=== PATIENT | male | born 1965 | race Caucasian/White ===

== ENCOUNTER → 2017-11-07 09:54 | Outpatient (CLI) | payer OTHER, SELFPAY ==
[2017-11-07 11:39] LABS: Add Manual Diff / Slide Review NO; Eosinophils Percent Auto 1.5 % (2-4); Hematocrit 41.6 % (41-53); Hemoglobin 14.3 g/dL (13.5-17.5); Lymphocytes Percent Auto 37.3 % (25-40); Mean Corpuscular HGB Conc 34.4 % (30-36); Mean Corpuscular Hemoglobin 30.9 PG (26-34); Mean Corpuscular Volume 89.8 fL (80-100); Monocytes Percent Auto 7.6 % (3-14); Neutrophils Absolute Auto 2700 /uL (3000-5900); Neutrophils Percent Auto 52.6 % (50-75); Platelet Count 361 X10^3/uL (150-400); Red Blood Cell Count 4.63 X10^6/uL (4.5-5.9); Red Cell Distribution Width 13.1 % (11.6-14.8); White Blood Cell Count 5.1 X10^3/uL (4.5-11.0)
[2017-11-07 11:50] LABS: TSH w/ Reflex to FT4 1.14 uIU/mL (0.47-4.68)
== END ==
PROVIDERS: PCP Family Medicine; Visit Provider Family Medicine
DX: R61 Generalized hyperhidrosis (principal)
CPT/HCPCS: 36415; 84153; 84443; 85025

== ENCOUNTER → 2018-05-28 11:14 | Outpatient (CLI) | payer OTHER, SELFPAY ==
[2018-05-28 13:08] LABS: Blood Urea Nitrogen 22 mg/dL (9-20); Calcium 9.7 mg/dL (8.4-10.2); Carbon Dioxide 28 mmol/L (22-32); Chloride 104 mmol/L (98-107); Estimated Glomerular Filt Rate > 60.0 mL/min (>60); Glucose 96 mg/dL (70-100); HEMOLYSIS < 15 (0-50); Potassium 4.9 mmol/L (3.4-5.1); Sodium 145 mmol/L (137-145)
== END ==
PROVIDERS: PCP Family Medicine; Visit Provider Family Medicine
DX: I10 Essential (primary) hypertension (principal)
CPT/HCPCS: 36415; 80048

== ENCOUNTER 2018-11-19 14:05 | Day surgery (SDC) | payer OTHER, SELFPAY ==
--- NOTE | 2018-11-19 | PATH_ITS ---
[facility] Accession Number: [id number] . 01 Material submitted: . ileo-cecal valve - ILEOCECAL VALVE MASS . 01 Clinical history: . MASS . 02 Diagnosis: Ileocecal Valve, Mass, Biopsy: Compact infiltrates of mast cells, greater than 15 per high-power field with co-expression of CD2 and CD25, consistent with systemic mastocytosis. Negative for epithelial dysplasia. Please see comment. V/11/29/2018 . 02 Comment: The combined morphologic and immunophenotypic results fulfill one major and one minor World Health Organization diagnostic criteria for systemic mastocytosis. Correlation with other signs, including dermatologic conditions is recommended. . Dr. Ndiaye called preliminary results to [facility] on 11/22/2018. As part of routine production quality analyst, Dr. Flores and Dr. Hay also reviewed this case and agree with the diagnosis. . Reference: Carlos Blanc SR. Systemic Mastocytosis Involving the Gastrointestinal Tract. Arch Pathol Lab Med. Feb 2013;137:9483-2093. . 02 Electronically signed: . Jessi Ndiaye MD, Pathologist NPI- [id number] . 01 Gross description: . ILEOCECAL VALVE MASS: Received in formalin are 3 fragment(s) of galeana, soft tissue measuring 0.4 x 0.4 x 0.2 cm to 0.4 x 0.2 x 0.2 cm submitted entirely in 1 cassette(s) /CKI /CKI . 02 Microscopic: . Immunohistochemical stains were performed to characterize the cells of interest. All control stains showed appropriate reactivity. . RESULTS: CD117: Positive in the cells of interest. Greater than 15 Cytokeratin NOÉ: Negative. S100: Negative. CD2: Positive in the cells of interest. CD25: Positive in the cells of interest. . INTERPRETATION: The deeper levels examined on the immunohistochemical stains only have a tiny amount of tissue; however, there is enough material to determine that the cells of interest are CD117 positive mast cells with an abnormal coexpression of CD2 and CD25, consistent with neoplastic mast cells. . * This test was developed and its performance characteristics determined by [facility]. It has not been cleared or approved by the U.S. Food and Drug Administration. The FDA has determined that such clearance or approval is not necessary. This test is used for clinical purposes. It should not be regarded as investigational or for research. . The technical component for the CD2 and CD25 stains was performed at [facility], [place], [place] (CLIA ID [id number]). . 02 Pathologist provided ICD-10: D47.02 . 02 CPT . 005012, G69196, Y70032, R59553 Performed at: [facility] [address] [facility], [place], [place] [id number] MD Jared Sands MD Phone: [phone] Performed at: 02 [facility] [address] [place], [place] [id number] MD Jessi Ndiaye MD Phone: [phone]
--- NOTE | 2018-11-19 14:12 | PM.HP.1 ---
History of Present Illness Date Patient Seen: 11/19/18 Time Patient Seen: 14:13 Chief complaint: [id number] Colonoscopy Narrative: 53yo M for first screening colonoscopy. No alarm symptoms, only has occasional small blood streaks when he has a hard stool. Working on losing weight. Grandfather has CRC at age 52. Patient History Medical History Anxiety (Chronic) Hay fever (Chronic ~1985) Foot pain (Chronic ~2016) GERD (gastroesophageal reflux disease) (Chronic) Surgical History Status post cholecystectomy (Resolved) Family History Father Heart disease Hypertension High cholesterol Stroke Mother Skin cancer Social History marital status: number of children: 1 household members: family lives independently: Yes occupational status: employed Smoking Status: Former smoker (off and on 10 year smoker 1 ppd) alcohol intake: current substance use type: does not use Family & Social History Family History Father Heart disease Hypertension High cholesterol Stroke Mother Skin cancer Social History: household members family lives independently Yes Tobacco & Substance use: Smoking Status Former smoker alcohol intake current Meds Home Medications Medication Instructions Recorded Confirmed Type ranitidine 150 mg tablet 150 mg PO DAILY 04/08/18 09/03/18 History losartan 50 mg tablet 50 mg PO DAILY #90 tab 09/03/18 09/03/18 Rx Allergies Allergy/AdvReac Type Severity Reaction Status Date / Time meperidine [From DEMEROL] Allergy Unknown Verified 09/03/18 09:06 Review of Systems Constitutional Constitutional: Reports as per HPI Exam Narrative Exam Narrative: AAO, NAD, obese male EOMI, MMM, no scleral icterus unlabored RA soft, nt/nd MAEW visible skin dry and intact Assessment & Plan (1) Encounter for screening colonoscopy: Current visit: Yes Status: Acute Assessment & Plan narrative: - plan for high risk screening colonoscopy --> all R/B/A discussed and pt wishes to proceed
[2018-11-19] MEDS: SODIUM CHLORIDE 0.9% 1,000 ML 150 ML IV (14:30)
[2018-11-19 14:34] VITALS: BP 151/91; PULSE 51; RESP 16; TEMP 36.6; O2SAT 97; BMI 29.7
[2018-11-19] MEDS: MIDAZOLAM 5 MG/5 ML VIAL IV (15:10)
[2018-11-19] MEDS: fentaNYL 250 MCG/5 ML INJ IV (15:11)
[2018-11-19 15:23] VITALS: BP 133/84; PULSE 59; RESP 13; TEMP 36.6; O2SAT 93
[2018-11-19 15:28] VITALS: BP 143/85; PULSE 60; RESP 15; O2SAT 95
[2018-11-19 15:34] VITALS: BP 135/81; PULSE 63; RESP 12; TEMP 36.3; O2SAT 95
[2018-11-19 15:40] VITALS: BP 130/83; PULSE 54; RESP 15; TEMP 36.3; O2SAT 95
--- NOTE | 2018-11-19 15:40 | P.OP.ENDO_ITS ---
Operative Date/Time/Diagnoses Date of procedure: 11/19/18 Time of procedure: 15:33 Pre-op diagnosis: High risk screening colonoscopy Post-op diagnosis: other (1. same 2. Ileocecal valve mass) Procedure & Clinicians Study performed: High risk screening colonoscopy with biopsy Same procedure as scheduled: Yes Indications: 53yo M with family history of colon cancer for first screening colonoscopy. No symptoms. All risks, benefits, and alternatives discussed and pt wishes to proceed. Surgeon: Aidee Baez Procedure Notes SCOAP/Timeout: 1447 Procedure in detail: After obtaining informed consent, the patient was brought to the GI suite and placed in the left lateral decubitus position on the examination table. After placement of appropriate monitors, the patient was given incremental doses of Versed and Fentanyl until an appropriate level of sedation was achieved. A time out was held per SCOAP protocol. A digital rectal examination was performed and did not reveal any masses or obstructing lesions but small external hemorrhoids are noted as is a mildly enlarged prostate. The colonoscope was gently passed into the patient's anus and the entire colon navigated to the level of the cecum with minimal di fficulty. Prep was adequate. Once in the cecum, the scope was slowly withdrawn being sure to go before and beyond all mucosal folds and prominences as able to get a thorough examination. On the ileocecal valve, heaped-up tissue appears to be a mass but is fairly ill-defined with no clear base and no color changes. Non-obstructing. Biopsies are sent. Other findings as noted. At the level of the rectal vault, the scope was retroflexed and the internal anal canal was examined. The scope was straightened and air aspirated from the colon. The instrument was removed from the patient's body and the procedure was concluded. The patient was allowed to awaken from sedation without difficulty and taken to the post-anesthesia care unit in good condition. Scope withdrawal time: 12 min Sedation minutes: 31 Findings: possible cancer (heaped up tissue on ileocecal valve, around 2 cm but poorly defined; biopsied with cold forceps) Specimen(s): other (biopsies of ileocecal valve mass) Complications: none Impression: 1. Tissue formation concerning for advanced polyp or other mass on ileocecal valve; biopsies sent Recommendations: Colonscopy in 1 year (pending path) Plan for aftercare: would recommend propofol for next sedation, pt required high medication doses and was still fairly awake through procedure Follow up: weeks Disposition: PACU
[2018-11-19 16:00] VITALS: BP 145/81; PULSE 57; RESP 15; TEMP 36.1; O2SAT 97
== END 2018-11-19 16:15 | disposition home or self-care (01) ==
PROVIDERS: PCP Family Medicine; Visit Provider Surgery
PROC: 0DJD8ZZ Inspection of Lower Intestinal Tract, Via Natural or Artificial Opening Endoscopic (ICD-10-PCS; CPT 45378; principal; 2018-11-19 15:00)
DX: Z12.11 Encounter for screening for malignant neoplasm of colon (principal); Z80.0 Family history of malignant neoplasm of digestive organs; F41.9 Anxiety disorder, unspecified; K21.9 Gastro-esophageal reflux disease without esophagitis; Z87.891 Personal history of nicotine dependence; D47.02 Systemic mastocytosis
CPT/HCPCS: 45380; 99152; 99153; J2250; J3010

== ENCOUNTER → 2019-02-03 13:30 | Outpatient (CLI) | payer OTHER, SELFPAY ==
--- NOTE | 2019-02-03 14:42 | DI.CT.S_ITS ---
PROCEDURE: CT ABDOMEN PELVIS W CON INDICATIONS: mastocycosis TECHNIQUE: After the administration of intravenous contrast, 5 mm thick sections acquired from the diaphragm to the symphysis. 5 mm coronal and sagittal reformats were acquired. For radiation dose reduction, the following was used: automated exposure control, adjustment of mA and/or kV according to patient size. COMPARISON: None. FINDINGS: Image quality: Excellent. ABDOMEN: Lung bases: Lung bases are clear. Heart size is normal. Solid organs: Liver is normal in size and enhancement. Gallbladder has been previously resected. Biliary system is non dilated. Pancreas enhances normally. Spleen is normal in size and enhancement. No adrenal nodules. Kidneys demonstrate normal size and enhancement, without hydronephrosis. Peritoneum and bowel: Bowel loops demonstrate normal wall thickness and caliber. No free fluid or air. Nodes and vessels: No retroperitoneal or mesenteric adenopathy by size criteria. Aorta and inferior vena cava are normal in size. Miscellaneous: No ventral hernias. PELVIS: Genitourinary: Bladder wall thickness is normal. Miscellaneous: No inguinal hernias or adenopathy. Bones: No suspicious bony lesions. No vertebral body compression fractures. IMPRESSION: Prior cholecystectomy. No adenopathy found. No cutaneous lesions identified. Dictated by: Tomi Raymundo M.D. on 02/03/2019 at 17:36 Approved by: Tomi Raymundo M.D. on 02/03/2019 at 17:38
== END ==
PROVIDERS: PCP Family Medicine; Visit Provider Internal Medicine Hematology & Oncology
DX: D47.09 Other mast cell neoplasms of uncertain behavior (principal)
CPT/HCPCS: 74177; 77080; Q9967

== ENCOUNTER → 2019-03-20 10:23 | Outpatient (CLI) | payer OTHER, SELFPAY ==
--- NOTE | 2019-03-20 10:26 | DI.RAD.S_ITS ---
PROCEDURE: XR BONE SURVEY INDICATIONS: mastocytosis, osteopenia TECHNIQUE: Multiple views obtained of various bony structures as described below. COMPARISON: None. FINDINGS: Skull (lateral): No suspicious bony lesions. No fractures. Thoracic spine (AP, lateral): No suspicious bony lesions. No acute vertebral body compression fractures. Surgical clips are noted in gallbladder fossa. Lumbar spine (AP, lateral): No suspicious bony lesions. No acute vertebral body compression fractures. Very mild dextroscoliosis centered at L3 level is seen. Pelvis (AP): No suspicious bony lesions. No fractures. Overlying soft tissues appear unremarkable. Bilateral hip joint osteophytic changes are noted. Surgical clip is seen in right pelvis. No evidence of avascular necrosis of femoral heads. Right and left humeri (AP): No suspicious bony lesions. No fractures. Overlying soft tissues appear unremarkable. Right and left femurs (AP): No suspicious bony lesions. No fractures. Overlying soft tissues appear unremarkable. Mild bilateral knee joint osteoarthritis is seen. IMPRESSION: No suspicious bony lesions. No evidence of fracture or dislocation. Dictated by: Rodolfo Grayson M.D. on 03/20/2019 at 11:17 Approved by: Rodolfo Grayson M.D. on 03/20/2019 at 11:20
== END ==
PROVIDERS: PCP Family Medicine; Visit Provider Internal Medicine Hematology & Oncology
DX: D47.09 Other mast cell neoplasms of uncertain behavior (principal); M85.80 Other specified disorders of bone density and structure, unspecified site
CPT/HCPCS: 77075

== ENCOUNTER → 2019-06-16 16:35 | Outpatient (CLI) | payer OTHER, SELFPAY ==
--- NOTE | 2019-06-16 | DI.MRI.S_ITS ---
PROCEDURE: MR BRAIN (IAC) WWO CON INDICATIONS: UNSPECIFIED SENSORINEUAL HEARING LOSS TECHNIQUE: Noncontrast sagittal T1 spin echo, axial FLAIR, axial gradient echo, axial diffusion and ADC through the brain. Axial thin-slice 3D CISS, coronal TruFISP, axial T1 spin echo with fat saturation through the internal auditory canals. After the administration of contrast, thin slice axial and coronal T1 spin echo with fat saturation through the internal auditory canals, and axial T1 spin echo with fat saturation through the brain. COMPARISON: None. FINDINGS: Image quality: Excellent. Cerebellopontine angles: No cerebellopontine angle masses. Inner ear structures appear normally formed. No suspicious enhancement in the internal auditory canal or along the course of the 7th cranial nerve. CSF spaces: Ventricles are normal in size and shape. No extra-axial fluid collections. Basal cisterns are patent. There is ancelmo foramen magnum versus an arachnoid cyst in the posterior fossa. Brain: No intracranial bleeds or mass effects. Waterman-white matter interface is intact. No abnormal intracranial enhancement. Diffusion weighted images demonstrate no acute ischemic insults. Brainstem appears normal. Normal intravascular flow voids are present. Skull and face: Calvarial marrow signal is normal. Orbits appear normal. Sinuses: Sinuses and mastoids are clear. IMPRESSION: 1. No MRI findings to explain sensorineural loss. 2. Ancelmo foramen magnum versus an arachnoid cyst in the posterior fossa. Dictated by: Ron Healy M.D. on 06/17/2019 at 14:21 Approved by: Ron Healy M.D. on 06/17/2019 at 16:08
== END ==
PROVIDERS: PCP Family Medicine; Visit Provider Otolaryngology
DX: H90.5 Unspecified sensorineural hearing loss (principal); H93.13 Tinnitus, bilateral
CPT/HCPCS: 70553

== ENCOUNTER → 2019-09-30 08:20 | Outpatient (CLI) | payer OTHER, SELFPAY ==
[2019-09-30 08:44] LABS: Add Manual Diff / Slide Review NO; Basophils Absolute Auto 0 /uL (0-100); Basophils Percent Auto 0.9 % (0-2); Eosinophils Absolute Auto 100 /uL (0-450); Eosinophils Percent Auto 2.2 % (2-4); Hematocrit 41.5 % (41-53); Hemoglobin 14.3 g/dL (13.5-17.5); Lymphocytes Absolute Auto 1700 /uL (1100-4500); Lymphocytes Percent Auto 36.7 % (25-40); Mean Corpuscular HGB Conc 34.5 % (30-36); Mean Corpuscular Hemoglobin 31.1 PG (26-34); Mean Corpuscular Volume 89.9 fL (80-100); Monocytes Absolute Auto 400 /uL (0-900); Monocytes Percent Auto 8.1 % (3-14); Neutrophils Absolute Auto 2500 /uL (1500-7000); Neutrophils Percent Auto 52.1 % (50-75); Platelet Count 357 X10^3/uL (150-400); Red Blood Cell Count 4.61 X10^6/uL (4.5-5.9); Red Cell Distribution Width 13.2 % (11.6-14.8); White Blood Cell Count 4.8 X10^3/uL (4.5-11.0)
[2019-09-30 08:56] LABS: Alanine Aminotransferase 37 IU/L (<50); Albumin 4.6 g/dL (3.5-5.0); Albumin Globulin Ratio 1.5 (1.0-2.8); Alkaline Phosphatase 61 U/L (38-126); Aspartate Aminotransferase 33 IU/L (17-59); BUN Creatinine Ratio 31.3 (6-22); Bilirubin Total 0.5 mg/dL (0.2-1.3); Blood Urea Nitrogen 26 mg/dL (9-20); Calcium 9.2 mg/dL (8.4-10.2); Carbon Dioxide 28 mmol/L (22-32); Chloride 105 mmol/L (98-107); Estimated Glomerular Filt Rate > 60.0 mL/min (>60); Globulin 3.1 g/dL (1.7-4.1); Glucose 112 mg/dL (70-100); HEMOLYSIS < 15 (0-50); Potassium 4.4 mmol/L (3.4-5.1); Sodium 140 mmol/L (137-145); Total Protein 7.7 g/dL (6.3-8.2)
[2019-09-30 09:04] LABS: Cholesterol 257 mg/dL (140-199); HDL Cholesterol 36 mg/dL (40-60); LDL Cholesterol Calculated 204 mg/dL (<100); Triglycerides 86 mg/dL (35-150)
[2019-09-30 09:27] LABS: Carcinoembryonic Antigen 0.5 ng/mL (0.1-3.0)
[2019-09-30 09:32] LABS: Prostate Specific Antigen Scrn 4.28 ng/mL (0.1-4.0)
== END ==
PROVIDERS: Internal Medicine Hematology & Oncology; PCP Family Medicine; Referring Provider Family Medicine; Visit Provider Family Medicine
DX: Z12.5 Encounter for screening for malignant neoplasm of prostate (principal); E78.5 Hyperlipidemia, unspecified; D47.09 Other mast cell neoplasms of uncertain behavior; M81.0 Age-related osteoporosis without current pathological fracture; Z79.899 Other long term (current) drug therapy; I10 Essential (primary) hypertension; M81.8 Other osteoporosis without current pathological fracture; R97.20 Elevated prostate specific antigen [PSA]; R73.09 Other abnormal glucose
CPT/HCPCS: 36415; 80053; 80061; 82378; 85025; G0103

== ENCOUNTER → 2019-10-27 16:59 | Outpatient (CLI) | payer OTHER, SELFPAY ==
[2019-10-27 19:51] LABS: Prostate Specific Antigen Scrn 4.11 ng/mL (0.1-4.0)
== END ==
PROVIDERS: PCP Family Medicine; Referring Provider Family Medicine; Visit Provider Family Medicine
DX: R97.20 Elevated prostate specific antigen [PSA] (principal)
CPT/HCPCS: 36415; G0103

== ENCOUNTER → 2019-12-08 16:16 | Outpatient (CLI) | payer OTHER, SELFPAY ==
[2019-12-09 08:46] LABS: COVID19 Sendout Not Detected (Not Detect)
== END ==
PROVIDERS: PCP Family Medicine; Visit Provider Physician Assistant
DX: Z01.812 Encounter for preprocedural laboratory examination (principal)
CPT/HCPCS: 87635

== ENCOUNTER 2019-12-11 11:50 | Day surgery (SDC) | payer OTHER, SELFPAY ==
[2019-12-11] VITALS (9 sets, daily range): BP systolic 121–158; BP diastolic 48–97; PULSE 52–72; RESP 14–17; TEMP 36.1–36.6; O2SAT 93–99
--- NOTE | 2019-12-11 | PATH_ITS ---
[facility] Accession Number: [id number] . 01 Material submitted: . ileo-cecal valve - ILEOCECAL MASS BIOPSIES . 02 Diagnosis: Ileocecal Mass, Biopsies: Colonic mucosa with no significant diagnostic abnormality. Negative for dysplasia and malignancy. [facility] 12/15/2019 1420 Local . 02 Comment: There are no histologic features in this biopsy to explain the impression of a mass. The prior case was reviewed ([id number]) and the current biopsies do not have a similar appearance. A CD117 immunohistochemical stain highlights scattered mast cells, but no mast cell aggregates. . As part of routine quality control auditor, Dr. Hay also reviewed this case and agrees with the diagnosis. . 02 Electronically signed: . Jessi Ndiaye MD, Pathologist NPI- [id number] . 01 Gross description: . ILEOCECAL MASS BIOPSIES: Received in formalin are 4 fragment(s) of galeana, soft tissue measuring 0.2 x 0.2 x 0.1 cm to 0.4 x 0.2 x 0.2 cm submitted entirely in 1 cassette(s) /JESSE 12/11/2019 2044 Local . 02 Microscopic: . An immunohistochemical stain for CD117 was performed to evaluate for the presence of mast cell aggregates, and is negative for aggregates of mast cells, but does highlight scattered mast cell in the tissue. . * This test was developed and its performance characteristics determined by [facility]. It has not been cleared or approved by the U.S. Food and Drug Administration. The FDA has determined that such clearance or approval is not necessary. This test is used for clinical purposes. It should not be regarded as investigational or for research. . 02 Pathologist provided ICD-10: D47 CPT . 292798, T04085 Performed at: 01 [facility] [address] [place] [address], [place], [place] [id number] MD Jared Sands MD Phone: [phone] Performed at: 02 [facility] [address] [place], [place] [id number] MD Jessi Ndiaye MD Phone: [phone]
[2019-12-11] MEDS: LACTATED RINGERS 1,000 ML 200 ML IV (12:04)
--- NOTE | 2019-12-11 12:51 | P.HP_ITS ---
History of Present Illness History of Present Illness Date Patient Seen: 12/11/19 Time Patient Seen: 12:54 Chief complaint: [id number] Narrative: Tucker is a 54-year-old man who underwent a colonoscopy October 2018 which demonstrated a mass at the ileocecal valve. Biopsy the mass demonstrated mastocytosis. He has been evaluated by Dr. Peacock of Oncology as well as [facility] in carries a diagnosis of indolent systemic mastocytosis. He reports no changes in his bowel habits, no constipation, diarrhea or blood per rectum. He is here for a repeat colonoscopy. Past medical history is significant for obesity. Grandfather had colorectal cancer but no first-degree relatives Patient History Medical History Anxiety (Chronic) Foot pain (Chronic ~2016) GERD (gastroesophageal reflux disease) (Chronic) Hay fever (Chronic ~1985) Hyperlipidemia (Acute) Surgical History Status post cholecystectomy (Resolved) Family & Social History Family History Father Heart disease Hypertension High cholesterol Stroke Mother Skin cancer Social History: household members family lives independently Yes Tobacco & Substance use: Smoking Status Former smoker alcohol intake current alcohol intake frequency 0-2 drinks per day Substance Use Type does not use Meds Home Medications and Allergies Home Medications Medication Instructions Recorded Confirmed Type lorazepam 0.5 mg tablet See Rx Instructions PO BID PRN #15 01/28/19 10/27/19 Rx tab ascorbic acid (vitamin C) [Vitamin 1,000 mg DAILY 02/06/19 10/27/19 History C] cholecalciferol (vitamin D3) 1,000 unit PO DAILY 03/20/19 10/27/19 History [Vitamin D3] epinephrine [EpiPen] 0.3 mg IM Q10M PRN #2 ea 03/20/19 10/27/19 Rx esomeprazole magnesium 20 mg 20 mg PO DAILY #30 cap 09/08/19 10/27/19 Rx capsule,delayed release hydrochlorothiazide 25 mg tablet 25 mg PO DAILY #30 tab 11/14/19 11/14/19 Rx Allergies Allergy/AdvReac Type Severity Reaction Status Date / Time meperidine [From DEMEROL] Allergy Unknown Verified 12/08/19 16:13 Review of Systems Review of Systems Narrative: A 10 point review of systems is negative except as noted in the HPI Exam Vital Signs (past 8 hours): - 12/11/19 12:12 Temperature 97.0 F L Pulse Rate 52 L Respiratory Rate 17 Blood Pressure 158/90 H Pulse Oximetry 99 Oxygen Delivery Method Room Air Narrative Exam Narrative: General-no acute distress, well nourished HEENT-moist mucous membranes, no scleral icterus Neck-supple, no lymphadenopathy Chest- non labored respirations, clear to auscultation bilaterally Cardiac-regular rate no peripheral edema Abdomen-soft, nontender, non distended Extremities-warm, well perfused Neurological-alert and oriented, no focal deficits Assessment & Plan Assessment and plan (1) Mastocytosis: Status: Acute Assessment & Plan narrative: 54-year-old man who was found to have a cecal growth 1 year ago consistent with mastocytosis. He is here for a 1 year repeat colonoscopy to re-evaluate the growth. Discussed technical nature of the colonoscopy with him the procedure risks of bleeding infection misdiagnosis intestinal perforation. His questions have been answered he is in agreement with this plan
[2019-12-11] MEDS: MIDAZOLAM 5 MG/5 ML VIAL 6 MG IV (13:12)
[2019-12-11] MEDS: fentaNYL 250 MCG/5 ML INJ IV (13:12)
--- NOTE | 2019-12-11 13:22 | PM.OP.ENDO ---
Operative Date/Time/Diagnoses Date of procedure: 12/11/19 Time of procedure: 13:22 Pre-op diagnosis: Mastocytosis, Cecal mass Post-op diagnosis: same Procedure & Clinicians Study performed: Colonoscopy Same procedure as scheduled: Yes Indications: A 54-year-old man was found have a cecal mass on screening colonoscopy last year which demonstrates indolent mastocytosis. He is here screening colonoscopy today Surgeon: Mark Garcia Procedure Notes SCOAP/Timeout: Performed Procedure in detail: Patient placed in left lateral decubitus position. Time out was performed. Procedural sedation was administered with Versed and Fentanyl. A rectal exam demonstrated no external hemorrhoids no internal masses. Colonoscopy scope was placed into the rectum and advanced through the colon to the cecum. The ileocecal valve was identified. At the ileocecal valve there was a cecal mass of approximately 3 x 2 cm adjacent to the valve. With similar in appearance to last year's findings. Four biopsies were taken with biopsy forceps. Hemostasis was observed. Scope was then gradually withdrawn through the colon. There was no other evidence of colonic masses or other pathology. The scope was gently retroflexed within the rectum and then was removed. Patient tolerated procedure well. Scope withdrawal time: 7 Sedation minutes: 20 Findings: other findings (Ileocecal mass) Specimen(s): other (Ileocecal mass) Complications: none Impression: Ileocecal mass, mastocytosis Post-procedure Recommendations: Other recommendation (Follow-up with oncology) Disposition: same day surgery
--- NOTE | 2019-12-11 13:50 | SUR.PHASEI ---
Patient A\O x 4. Has small amount of gas. Tolerating po.
== END 2019-12-11 14:28 | disposition home or self-care (01) ==
PROVIDERS: PCP Family Medicine; Referring Provider Surgery; Visit Provider Surgery
PROC: 0DJD8ZZ Inspection of Lower Intestinal Tract, Via Natural or Artificial Opening Endoscopic (ICD-10-PCS; CPT 45378; principal; 2019-12-11 13:00)
DX: Z12.11 Encounter for screening for malignant neoplasm of colon (principal); D47.02 Systemic mastocytosis; F41.9 Anxiety disorder, unspecified; K21.9 Gastro-esophageal reflux disease without esophagitis; E78.5 Hyperlipidemia, unspecified
CPT/HCPCS: 45380; 99152; J2250; J3010

== ENCOUNTER → 2020-04-19 09:45 | Outpatient (CLI) | payer OTHER, SELFPAY ==
[2020-04-19 10:05] LABS: Add Manual Diff / Slide Review NO; Basophils Absolute Auto 0 /uL (0-100); Basophils Percent Auto 0.6 % (0-2); Eosinophils Absolute Auto 100 /uL (0-450); Eosinophils Percent Auto 1.3 % (2-4); Hematocrit 42.2 % (41-53); Hemoglobin 14.3 g/dL (13.5-17.5); Lymphocytes Absolute Auto 2200 /uL (1100-4500); Lymphocytes Percent Auto 35.2 % (25-40); Mean Corpuscular HGB Conc 33.9 % (30-36); Mean Corpuscular Hemoglobin 30.7 PG (26-34); Mean Corpuscular Volume 90.6 fL (80-100); Monocytes Absolute Auto 400 /uL (0-900); Monocytes Percent Auto 6.3 % (3-14); Neutrophils Absolute Auto 3600 /uL (1500-7000); Neutrophils Percent Auto 56.6 % (50-75); Platelet Count 434 X10^3/uL (150-400); Red Blood Cell Count 4.66 X10^6/uL (4.5-5.9); White Blood Cell Count 6.3 X10^3/uL (4.5-11.0)
[2020-04-19 10:16] LABS: Alanine Aminotransferase 41 IU/L (<50); Albumin 4.5 g/dL (3.5-5.0); Albumin Globulin Ratio 1.6 (1.0-2.8); Alkaline Phosphatase 67 U/L (38-126); Aspartate Aminotransferase 31 IU/L (17-59); BUN Creatinine Ratio 24.4 (6-22); Bilirubin Total 0.6 mg/dL (0.2-1.3); Blood Urea Nitrogen 21 mg/dL (9-20); Calcium 8.7 mg/dL (8.4-10.2); Carbon Dioxide 31 mmol/L (22-32); Chloride 101 mmol/L (98-107); Estimated Glomerular Filt Rate > 60.0 mL/min (>60); Globulin 2.9 g/dL (1.7-4.1); Glucose 106 mg/dL (70-100); HEMOLYSIS < 15 (0-50); Potassium 3.7 mmol/L (3.4-5.1); Sodium 138 mmol/L (137-145); Total Protein 7.4 g/dL (6.3-8.2)
[2020-04-19 10:47] LABS: Carcinoembryonic Antigen 0.4 ng/mL (0.1-3.0); Prostate Specific Antigen 4.38 ng/mL (0.10-4.00)
[2020-04-19 11:37] LABS: Cholesterol 250 mg/dL (140-199); HDL Cholesterol 34 mg/dL (40-60); LDL Cholesterol Calculated 187 mg/dL (<100); Triglycerides 145 mg/dL (35-150)
== END ==
PROVIDERS: Internal Medicine Hematology & Oncology; PCP Family Medicine; Referring Provider Family Medicine; Visit Provider Family Medicine
DX: E78.5 Hyperlipidemia, unspecified (principal); D47.09 Other mast cell neoplasms of uncertain behavior; R97.20 Elevated prostate specific antigen [PSA]; M81.0 Age-related osteoporosis without current pathological fracture
CPT/HCPCS: 36415; 80053; 80061; 82378; 84153; 85025

== ENCOUNTER → 2021-06-29 09:44 | Outpatient (CLI) | payer BC, SELFPAY ==
[2021-06-29 12:42] LABS: COVID19 -Nasal RAPID Negative (Negative)
== END ==
PROVIDERS: PCP Family Medicine; Visit Provider Nurse Practitioner Family
DX: Z01.812 Encounter for preprocedural laboratory examination (principal); Z20.822 Contact with and (suspected) exposure to COVID-19
CPT/HCPCS: 87635

== ENCOUNTER → 2021-07-13 09:52 | Outpatient (CLI) | payer BC, SELFPAY | PROVIDERS: PCP Family Medicine; Referring Provider Internal Medicine Hematology & Oncology; Visit Provider Internal Medicine Hematology & Oncology | DX: M85.88 Other specified disorders of bone density and structure, other site (principal); D47.09 Other mast cell neoplasms of uncertain behavior; Z87.891 Personal history of nicotine dependence | CPT/HCPCS: 77080 ==

== ENCOUNTER → 2022-01-16 08:55 | Outpatient (CLI) | payer BC, SELFPAY ==
[2022-01-16 09:36] LABS: Cholesterol 203 mg/dL (140-199); HDL Cholesterol 39 mg/dL (40-60); LDL Cholesterol Calculated 143 mg/dL (<100); Triglycerides 103 mg/dL (35-150)
== END ==
PROVIDERS: PCP Family Medicine; Referring Provider Family Medicine; Visit Provider Family Medicine
DX: E78.5 Hyperlipidemia, unspecified (principal)
CPT/HCPCS: 36415; 80061

== ENCOUNTER → 2022-07-14 17:23 | Outpatient (ROUT) | payer BC, SELFPAY ==
[2022-07-14 17:59] LABS: Add Manual Diff / Slide Review NO; Basophils Absolute Auto 100 /uL (0-100); Basophils Percent Auto 0.7 % (0-2); Eosinophils Absolute Auto 200 /uL (0-450); Eosinophils Percent Auto 2.1 % (2-4); Hematocrit 40.2 % (41-53); Hemoglobin 13.8 g/dL (13.5-17.5); Lymphocytes Absolute Auto 2300 /uL (1100-4500); Lymphocytes Percent Auto 28.2 % (25-40); Mean Corpuscular HGB Conc 34.4 % (30-36); Mean Corpuscular Hemoglobin 30.4 PG (26-34); Mean Corpuscular Volume 88.3 fL (80-100); Monocytes Absolute Auto 600 /uL (0-900); Monocytes Percent Auto 7.1 % (3-14); Neutrophils Absolute Auto 5100 /uL (1500-7000); Neutrophils Percent Auto 61.9 % (50-75); Platelet Count 481 X10^3/uL (150-400); Red Blood Cell Count 4.56 X10^6/uL (4.5-5.9); Red Cell Distribution Width 12.9 % (11.6-14.8); White Blood Cell Count 8.3 X10^3/uL (4.5-11.0)
[2022-07-14 18:23] LABS: Alanine Aminotransferase 35 IU/L (<50); Albumin 4.4 g/dL (3.5-5.0); Albumin Globulin Ratio 1.5 (1.0-2.8); Alkaline Phosphatase 76 U/L (38-126); Aspartate Aminotransferase 41 IU/L (17-59); BUN Creatinine Ratio 22.4 (6-22); Bilirubin Total 0.4 mg/dL (0.2-1.3); Blood Urea Nitrogen 19 mg/dL (9-20); Calcium 8.9 mg/dL (8.4-10.2); Carbon Dioxide 30 mmol/L (22-32); Chloride 98 mmol/L (98-107); Estimated Glomerular Filt Rate > 60 mL/min (>60); Glucose 87 mg/dL (70-100); HEMOLYSIS < 15 (0-50); Potassium 3.6 mmol/L (3.4-5.1); Sodium 139 mmol/L (137-145); Total Protein 7.4 g/dL (6.3-8.2)
[2022-07-14 18:53] LABS: Prostate Specific Antigen 5.99 ng/mL (0.10-4.00)
== END ==
PROVIDERS: PCP Family Medicine; Visit Provider Internal Medicine Hematology & Oncology
DX: D47.09 Other mast cell neoplasms of uncertain behavior (principal); R97.20 Elevated prostate specific antigen [PSA]
CPT/HCPCS: 36415; 80053; 83520; 84153; 85025

== ENCOUNTER → 2022-08-21 17:07 | Outpatient (CLI) | payer BC, SELFPAY ==
[2022-08-23 09:47] LABS: PSA Free % 18.4 % (.); PSA, Total 6.7 ng/mL (0.0-4.0)
== END ==
PROVIDERS: PCP Family Medicine; Referring Provider Internal Medicine Hematology & Oncology; Visit Provider Internal Medicine Hematology & Oncology
DX: R97.20 Elevated prostate specific antigen [PSA] (principal)
CPT/HCPCS: 36415; 84153; 84154

== ENCOUNTER → 2022-09-18 15:22 | Outpatient (CLI) | payer BC, SELFPAY ==
--- NOTE | 2022-09-18 15:53 | DI.MRI.S_ITS ---
PROCEDURE: MR PELIS WO/W CON INDICATIONS: elevated PSA. Family History of prostate cancer TECHNIQUE: Coronal HASTE, axial T1 FSE with fat saturation, 3-plane nonbreath-hold T2 FSE. After the administration of contrast, dynamic axial, delayed axial and coronal VIBE or 2-D FLASH with fat saturation through the pelvis. Optional diffusion weighted imaging and ADC may be performed. COMPARISON: None. FINDINGS: Image quality: Diffusion weighted and dynamic contrast enhanced images are diagnostic. Prostate: Gland size is 5.3 x 4.0 x 6.0 cm; ellipsoid gland volume is 66 mL. Wedge-shaped enhancement and faint T2 hypointense signal without restricted diffusion in the peripheral zone of the apex, most consistent with prostatitis. No PI-RADS 3-5 lesions. Genitourinary system: Bladder wall thickness is normal. Distal ureters are non distended. Bowel and peritoneum: No pathologic free pelvic fluid. Inferior colon and small bowel loops are normal in caliber. Nodes and vessels: No pelvic or inguinal adenopathy by size criteria. Iliac vessels are normal in caliber. Soft tissues: Fat within the inguinal canals. Bones: Marrow demonstrates normal overall signal, without lesions to suggest metastases. IMPRESSION: Prostatomegaly. No PI-RADS 3-5 lesions. Prostatitis of the peripheral zone at the prostate apex. Dictated by: Kedar Cox M.D. on 09/18/2022 at 16:32 Approved by: Kedar Cox M.D. on 09/18/2022 at 16:37
== END ==
PROVIDERS: PCP Family Medicine; Referring Provider Specialist; Visit Provider Specialist
DX: N40.1 Benign prostatic hyperplasia with lower urinary tract symptoms (principal); N13.8 Other obstructive and reflux uropathy; R97.20 Elevated prostate specific antigen [PSA]; N41.9 Inflammatory disease of prostate, unspecified
CPT/HCPCS: 72197; A9579

== ENCOUNTER 2023-01-30 08:27 | Day surgery (SDC) | payer BC, SELFPAY ==
--- NOTE | 2023-01-30 | PATH_ITS ---
[facility] Accession Number: [id number] No. of containers..01 Tissue . 01 Material submitted: . ileo-cecal valve - ILEOCECAL VALVE . 01 Diagnosis: Ileocecal Valve, Polyp: Tubular adenoma. [facility] 02/09/2023 1333 Local . 01 Electronically signed: . Jessi Ndiaye MD, Pathologist NPI- [id number] . 01 Gross description: . ILEOCECAL VALVE: Received in formalin is multiple fragment(s) of galeana, soft tissue measuring 2.0 x 1.0 x 0.5 cm in aggregate submitted entirely in 1 cassette(s) /AAY 02/01/2023 1312 Local . 01 Pathologist provided ICD-10: D12.6 . 01 CPT . 463622 Specimen Comment: A courtesy copy of this report has been sent to [phone] Performed at: 01 [facility] [address] [place] [address], [place], [place] [id number] MD Jared Sands MD Phone: [phone]
[2023-01-30 08:53] VITALS: BMI 32.5
[2023-01-30 08:58] VITALS: BP 163/88; PULSE 55; RESP 16; TEMP 36.3; O2SAT 98
[2023-01-30] MEDS: LACTATED RINGERS 1,000 ML 200 ML IV (09:04)
--- NOTE | 2023-01-30 09:59 | P.HP_ITS ---
History of Present Illness History of Present Illness Date Patient Seen: 01/30/23 Time Patient Seen: 09:59 Chief complaint: Colonoscopy Narrative: 57-year-old male with a history of mastocytosis and a family history of colon cancer here for routine screening. Previous colonoscopy demonstrated a indolent mass at the the ileocecal valve. No abdominal pain unintentional weight blood per rectum. Last colonoscopy 2019. [facility] Medical History Anxiety Asthma BPH w urinary obs/LUTS Cancer Chest pain Enlarged prostate Foot pain (~2016) GERD (gastroesophageal reflux disease) Hay fever (~1985) Hyperlipidemia Surgical History Status post cholecystectomy Family History Father Heart disease Hypertension High cholesterol Stroke Mother Skin cancer Grandfather Cancer Social History marital status: number of children: 1 household members: spouse lives independently: Yes occupational status: employed Smoking Status: Former smoker alcohol intake: current substance use type: does not use Type(s) of exercise: bicycling frequency: 5-6 times per week Meds Home Medications and Allergies Home Medications Medication Instructions Recorded Confirmed Type ascorbic acid (vitamin C) 1,000 mg 1,000 mg DAILY 02/06/19 01/30/23 History tablet (Vitamin C) cholecalciferol (vitamin D3) 25 1,000 unit PO DAILY 03/20/19 01/30/23 History mcg (1,000 unit) capsule (Vitamin D3) epinephrine 0.3 mg/0.3 mL 0.3 mg (0.3 mL) IM Q10M PRN 03/20/19 01/30/23 Rx injection, auto-injector (EpiPen) mastocytosis #2 ea esomeprazole magnesium 20 mg 20 mg PO DAILY #30 caps 09/08/19 01/30/23 Rx capsule,delayed release (Nexium 24HR) hydrochlorothiazide 25 mg tablet See Rx Instructions .Route 03/01/22 01/30/23 Rx .COMPLEX #90 tabs Allergies Allergy/AdvReac Type Severity Reaction Status Date / Time meperidine [From DEMEROL] Allergy Unknown Nausea Verified 01/30/23 08:50 Exam Vital Signs (past 8 hours): - 01/30/23 08:58 Temperature 97.4 F L Pulse Rate 55 L Respiratory Rate 16 Blood Pressure 163/88 H Pulse Oximetry 98 Oxygen Delivery Method Room Air Oxygen Delivery Method Room Air Narrative Exam Narrative: General adult man alert oriented no acute distress Abdomen soft nontender nondistended Assessment & Plan Assessment and plan (1) Family history of colon cancer: Status: Acute Assessment & Plan narrative: 57-year-old man history of mastocytosis and family history of colon cancer here for screening colonoscopy. Technical details were discussed. Risks, benefits, alternatives explained. Risks including but not limited to myocardial infarction, aspiration, bleeding, pain, missed lesion, incomplete examination, need for further radiographic studies, colonic perforation, and need for major abdominal surgery were discussed. All questions were answered to their satisfaction, and they are in agreement with this plan.
[2023-01-30 10:27] VITALS: BP 124/76; PULSE 64; RESP 15; TEMP 36.2; O2SAT 93
--- NOTE | 2023-01-30 10:29 | PM.OP.COLON ---
Operative Date/Time/Diagnoses Date of procedure: 01/30/23 Time of procedure: 10:29 Pre-op diagnosis: Colonic polyps, family history of colon cancer, mastocytosis Post-op diagnosis: other (Ileocecal polyp) Procedure & Clinicians Study performed: Colonoscopy Same procedure as scheduled: Yes Indications: 57-year-old man has a history of a ileocecal mass which has been previously biopsied which demonstrates mastocytosis s. Last colonoscopy 3 years ago he is here for screening. Family history of colon cancer. Procedure Notes Procedure in detail: The history and physical was performed/updated and the patient is ASA class is 2. The procedure was discussed in detail with the patient. Potential risks complications including infection, bleeding, missed diagnosis, perforation, need for surgery, and were explained. Their questions were answered and informed consent was obtained. Patient was brought to the procedure room and placed standard monitoring equipment. The patient's vital signs were monitored continuously throughout the entire procedure. Prior to starting time-out was performed. The patient was placed in the left lateral recumbent position. Procedural sedation was administered by anesthesia. Examination began with a thorough inspection of the perianal area there was no evidence of fissures, fistulae, external hemorrhoids or cutaneous malignancy. The colonoscopy scope was then placed into the anal canal and was advanced to the cecum, which was identified by the ileocecal valve, the appendiceal orifice and the confluence of the taenia. The scope was then slowly withdrawn examining colon thoroughly in all directions, irrigating it of any residual stool. Within the cecum adjacent to the ileocecal valve there is a 5 mm polyp which is removed with cold snare. The patient tolerated the procedure well. They will be discharged once criteria are met. The prep was of good/excellent quality. The withdrawl time was 9 minutes. Specimen(s): other (Ileocecal polyp) Impression: Ileocecal polyp Post-procedure Plan for aftercare: Follow-up is dependent on pathology findings likely 5 years Disposition: same day surgery
[2023-01-30 10:32] VITALS: BP 104/64; PULSE 56; RESP 19; O2SAT 93
[2023-01-30 10:37] VITALS: BP 99/63; PULSE 55; PULSE 66; RESP 18; RESP 19; O2SAT 93; O2SAT 94
[2023-01-30 10:44] VITALS: BP 132/93; PULSE 57; RESP 16; TEMP 36.1; O2SAT 93
== END 2023-01-30 11:05 | disposition home or self-care (01) ==
PROVIDERS: PCP Family Medicine; Referring Provider Surgery; Visit Provider Surgery
PROC: 0DJD8ZZ Inspection of Lower Intestinal Tract, Via Natural or Artificial Opening Endoscopic (ICD-10-PCS; CPT 45378; principal; 2023-01-30 09:45)
DX: Z12.11 Encounter for screening for malignant neoplasm of colon (principal); Z86.010 Personal history of colon polyps; Z80.0 Family history of malignant neoplasm of digestive organs; D47.02 Systemic mastocytosis; D12.0 Benign neoplasm of cecum
CPT/HCPCS: 45385; J2704

== ENCOUNTER → 2023-06-20 15:52 | Outpatient (CLI) | payer BC, SELFPAY ==
[2023-06-20 17:51] LABS: Cholesterol 262 mg/dL (140-199); HDL Cholesterol 34 mg/dL (40-60); LDL Cholesterol Calculated 164 mg/dL (<100); Triglycerides 320 mg/dL (35-150)
[2023-06-22 07:40] LABS: PSA Free % 18.6 % (.); PSA, Total 4.9 ng/mL (0.0-4.0)
== END ==
PROVIDERS: PCP Family Medicine; Referring Provider Family Medicine; Visit Provider Family Medicine
DX: E78.5 Hyperlipidemia, unspecified (principal); R97.20 Elevated prostate specific antigen [PSA]
CPT/HCPCS: 36415; 80061; 84153; 84154

== ENCOUNTER → 2023-10-15 10:49 | Outpatient (CLI) | payer BC, SELFPAY ==
--- NOTE | 2023-10-15 | DI.RAD.S_ITS ---
PROCEDURE: XR DEXA AXIAL SKELETON INDICATIONS: Elevated prostate specific antigen [PSA] COMPARISON: [facility], , XR DEXA AXIAL SKELETON, 07/13/2021, 10:25. [facility], , XR DEXA AXIAL SKELETON, 02/03/2019, 13:56. FINDINGS: Lumbar Spine: Bone mineral density 0.879 g/cm2, T score -1.5. Left Hip: Bone mineral density 1.011 g/cm2, T score 0.6. Left Femoral Neck: Bone mineral density 0.804 g/cm2, T score -0.4. Right Hip: Bone mineral density 0.947 g/cm2, T score 0.0. Right Femoral Neck: Bone mineral density 0.778 g/cm2, T score -0.6. Fracture Risk Calculation (when applicable): FRAX not reported due to treated for osteoporosis. (T score greater or equal to -1.0 to: NORMAL) (T score from -1.1 to -2.4: OSTEOPENIA) (T score less than or equal to -2.5: OSTEOPOROSIS) IMPRESSION: Osteopenia at the lumbar spine. Dictated by: Otilio Chong M.D. on 10/15/2023 at 22:06 Approved by: Otilio Chong M.D. on 10/15/2023 at 22:08
[2023-10-15 15:20] LABS: Add Manual Diff / Slide Review NO; Basophils Absolute Auto 100 /uL (0-100); Basophils Percent Auto 0.8 % (0-2); Eosinophils Absolute Auto 100 /uL (0-450); Hematocrit 40.9 % (41-53); Hemoglobin 14.1 g/dL (13.5-17.5); Lymphocytes Absolute Auto 2100 /uL (1100-4500); Lymphocytes Percent Auto 28.9 % (25-40); Mean Corpuscular HGB Conc 34.4 % (30-36); Mean Corpuscular Volume 90.1 fL (80-100); Monocytes Absolute Auto 500 /uL (0-900); Neutrophils Absolute Auto 4500 /uL (1500-7000); Neutrophils Percent Auto 61.3 % (50-75); Platelet Count 422 X10^3/uL (150-400); Red Blood Cell Count 4.54 X10^6/uL (4.5-5.9); Red Cell Distribution Width 13.1 % (11.6-14.8); White Blood Cell Count 7.4 X10^3/uL (4.5-11.0)
[2023-10-15 15:42] LABS: Alanine Aminotransferase 28 IU/L (<50); Albumin 4.6 g/dL (3.5-5.0); Alkaline Phosphatase 67 U/L (38-126); Aspartate Aminotransferase 24 IU/L (17-59); BUN Creatinine Ratio 18.2 (6-22); Bilirubin Total 0.5 mg/dL (0.2-1.3); Blood Urea Nitrogen 18 mg/dL (9-20); Calcium 9.5 mg/dL (8.4-10.2); Carbon Dioxide 28 mmol/L (22-32); Chloride 105 mmol/L (98-107); Estimated Glomerular Filt Rate > 60 mL/min (>60); Globulin 2.3 g/dL (1.7-4.1); Glucose 89 mg/dL (70-100); HEMOLYSIS < 15 (0-50); Potassium 4.3 mmol/L (3.4-5.1); Sodium 138 mmol/L (137-145); Total Protein 6.9 g/dL (6.3-8.2)
[2023-10-15 16:10] LABS: Prostate Specific Antigen 6.57 ng/mL (0.10-4.00)
== END ==
PROVIDERS: PCP Family Medicine; Referring Provider Internal Medicine Hematology & Oncology; Visit Provider Internal Medicine Hematology & Oncology
DX: R97.20 Elevated prostate specific antigen [PSA] (principal); M85.88 Other specified disorders of bone density and structure, other site
CPT/HCPCS: 36415; 77080; 80053; 83520; 84153; 85025

== ENCOUNTER → 2024-01-21 14:58 | Outpatient (CLI) | payer BC, SELFPAY ==
--- NOTE | 2024-01-21 15:00 | DI.MRI.S_ITS ---
PROCEDURE: MR PELVIC PROSTATE PROTOCOL INDICATIONS: Elevated PSA TECHNIQUE: Coronal HASTE, axial T1 FSE with fat saturation, 3-plane nonbreath-hold T2 FSE. After the administration of contrast, dynamic axial, delayed axial and coronal VIBE or 2-D FLASH with fat saturation through the pelvis. Diffusion weighted imaging and ADC was performed. COMPARISON: None. FINDINGS: Image quality: Diffusion weighted and dynamic contrast enhanced images are diagnostic. Prostate: Gland size is 5.4 x 4.7 x 5.0 cm; ellipsoid gland volume is 66 mL. PSA density of 0.10. Hypertrophy of the transition zone with encapsulated and partially encapsulated nodules. Genitourinary system: Trabeculated bladder wall. Distal ureters are non distended. Bowel and peritoneum: No pathologic free pelvic fluid. Inferior colon and small bowel loops are normal in caliber. Nodes and vessels: No pelvic or inguinal adenopathy by size criteria. Iliac vessels are normal in caliber. Soft tissues: Fat within the inguinal canals. Bones: Marrow demonstrates normal overall signal, without lesions to suggest metastases. IMPRESSION: No PI-RADS 3 through 5 lesions. No pelvic lymphadenopathy by size criteria. No aggressive osseous abnormality. Dictated by: Kedar Cox M.D. on 01/21/2024 at 17:05 Approved by: Kedar Cox M.D. on 01/21/2024 at 17:07
[2024-01-21 17:52] LABS: Blood Urea Nitrogen 22 mg/dL (9-20); Calcium 9.2 mg/dL (8.4-10.2); Carbon Dioxide 27 mmol/L (22-32); Chloride 104 mmol/L (98-107); Estimated Glomerular Filt Rate > 60 mL/min (>60); Glucose 91 mg/dL (70-100); HEMOLYSIS < 15 (0-50); Potassium 3.8 mmol/L (3.4-5.1); Sodium 137 mmol/L (137-145)
== END ==
PROVIDERS: PCP Family Medicine; Referring Provider Specialist; Visit Provider Specialist
DX: N40.0 Benign prostatic hyperplasia without lower urinary tract symptoms (principal); R97.20 Elevated prostate specific antigen [PSA]; I10 Essential (primary) hypertension; N32.89 Other specified disorders of bladder
CPT/HCPCS: 72197; 80048; 84153; 84154; A9579

== ENCOUNTER → 2024-05-20 16:22 | Outpatient (CLI) | payer BC, SELFPAY ==
[2024-05-20 18:09] LABS: Add Manual Diff / Slide Review NO; Basophils Absolute Auto 100 /uL (0-100); Basophils Percent Auto 0.9 % (0-2); Eosinophils Absolute Auto 300 /uL (0-450); Eosinophils Percent Auto 3.4 % (2-4); Hematocrit 41.2 % (41-53); Hemoglobin 13.9 g/dL (13.5-17.5); Lymphocytes Absolute Auto 2600 /uL (1100-4500); Lymphocytes Percent Auto 30.7 % (25-40); Mean Corpuscular HGB Conc 33.6 % (30-36); Mean Corpuscular Hemoglobin 30.9 PG (26-34); Monocytes Absolute Auto 500 /uL (0-900); Monocytes Percent Auto 6.5 % (3-14); Neutrophils Absolute Auto 4900 /uL (1500-7000); Neutrophils Percent Auto 58.5 % (50-75); Platelet Count 427 X10^3/uL (150-400); Red Blood Cell Count 4.48 X10^6/uL (4.5-5.9); Red Cell Distribution Width 13.2 % (11.6-14.8); White Blood Cell Count 8.4 X10^3/uL (4.5-11.0)
[2024-05-20 18:27] LABS: Alanine Aminotransferase 29 IU/L (<50); Albumin 4.5 g/dL (3.5-5.0); Albumin Globulin Ratio 1.8 (1.0-2.8); Alkaline Phosphatase 62 U/L (38-126); Aspartate Aminotransferase 25 IU/L (17-59); BUN Creatinine Ratio 25.8 (6-22); Bilirubin Total 0.4 mg/dL (0.2-1.3); Blood Urea Nitrogen 25 mg/dL (9-20); Calcium 9.5 mg/dL (8.4-10.2); Carbon Dioxide 26 mmol/L (22-32); Chloride 102 mmol/L (98-107); Estimated Glomerular Filt Rate > 60 mL/min (>60); Globulin 2.5 g/dL (1.7-4.1); Glucose 87 mg/dL (70-100); HEMOLYSIS < 15 (0-50); Potassium 4.1 mmol/L (3.4-5.1); Sodium 137 mmol/L (137-145)
[2024-05-20 18:58] LABS: Prostate Specific Antigen 9.19 ng/mL (0.10-4.00)
== END ==
PROVIDERS: PCP Family Medicine; Referring Provider Nurse Practitioner Gerontology; Visit Provider Nurse Practitioner Gerontology
DX: R97.20 Elevated prostate specific antigen [PSA] (principal); D47.02 Systemic mastocytosis
CPT/HCPCS: 36415; 80053; 83520; 84153; 85025

== ENCOUNTER → 2025-05-04 07:05 | Outpatient (CLI) | payer BC, SELFPAY ==
[2025-05-04 08:24] LABS: Add Manual Diff / Slide Review NO; Hematocrit 42.3 % (41-53); Hemoglobin 14.7 g/dL (13.5-17.5); Lymphocytes Absolute Auto 1900 /uL (1100-4500); Mean Corpuscular HGB Conc 34.7 % (30-36); Mean Corpuscular Hemoglobin 31.0 PG (26-34); Mean Corpuscular Volume 89.5 fL (80-100); Platelet Count 432 X10^3/uL (150-400)
[2025-05-04 08:30] LABS: Hemoglobin A1C% w Est Avg Glu 5.7 % (4.0-6.0)
[2025-05-04 08:57] LABS: Alanine Aminotransferase 33 IU/L (<50); Albumin 4.6 g/dL (3.5-5.0); Albumin Globulin Ratio 1.8 (1.0-2.8); Alkaline Phosphatase 69 U/L (38-126); Blood Urea Nitrogen 19 mg/dL (9-20); Calcium 9.2 mg/dL (8.4-10.2); Carbon Dioxide 24 mmol/L (22-32); Chloride 103 mmol/L (98-107); Cholesterol 277 mg/dL (140-199); Estimated Glomerular Filt Rate > 60 mL/min (>60); Globulin 2.6 g/dL (1.7-4.1); Glucose 107 mg/dL (70-99); HDL Cholesterol 42 mg/dL (40-60); HEMOLYSIS < 15 (0-50); Potassium 4.7 mmol/L (3.4-5.1); Sodium 140 mmol/L (137-145); Total Protein 7.2 g/dL (6.3-8.2); Triglycerides 113 mg/dL (35-150)
[2025-05-04 09:10] LABS: Free T4, Direct Thyroxine 0.82 ng/dL (0.78-2.19)
[2025-05-04 09:24] LABS: Thyroid Stimulating Hormone 1.94 uIU/mL (0.47-4.68)
[2025-05-06 06:36] LABS: PSA, Total 9.0 ng/mL (0.0-4.0)
== END ==
PROVIDERS: PCP Family Medicine; Referring Provider Family Medicine; Visit Provider Internal Medicine Cardiovascular Disease
DX: N40.1 Benign prostatic hyperplasia with lower urinary tract symptoms (principal); Z13.1 Encounter for screening for diabetes mellitus; Z12.5 Encounter for screening for malignant neoplasm of prostate; E78.5 Hyperlipidemia, unspecified; E78.2 Mixed hyperlipidemia; I10 Essential (primary) hypertension; R97.20 Elevated prostate specific antigen [PSA]; N40.0 Benign prostatic hyperplasia without lower urinary tract symptoms; N13.8 Other obstructive and reflux uropathy
CPT/HCPCS: 80053; 80061; 83036; 84153; 84154; 84439; 84443; 85025; G0103